=== PATIENT | female | born 1950 | race Caucasian/White ===

== ENCOUNTER 2022-01-27 07:57 | Day surgery (SDC) | payer MEDICARE, OTHER ==
[~2022-01-27] VITALS: Ht 160 cm; Wt 77.0 kg
[~2022-01-27 07:57] MED LIST: ACETAMINOPHEN500 M1 PO; ADVIL200 M1 PO; ESTRADIOL0.5 MG PO; MELOXICAM15 MG PO; PAROXETINE HCL30 MG PO; PRESERVISION A1 EACH PO; ROSUVASTATIN CA10 MG PO; SYSTANE BALANCE10 ML OU; TRAZODONE 100M100 MG PO; TURMERIC500 M2 PO; VITAMIN D325 MC2 PO
--- NOTE | 2022-01-27 14:24 | NUR ---
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 CHOICE LETTER SIGNED
--- NOTE | 2022-01-27 14:37 | NUR ---
[facility] WILL ACCEPT PLEASE CALL [phone] AT D/C
[2022-01-28 07:36] LABS: BASOPHIL 0.1 % (0-2); EOSINOPHIL 0.1 % (0-7); HCT 34.2 % (37.0-47.0); HGB 11.2 g/dl (12.5-16.0); LYMPHOCYTE 12.4 % (15-48); MCH 32.1 pg (25.0-31.0); MCHC 32.7 g/dL (32.0-36.0); MONOCYTE 10.9 % (0-12); MPV 10.1 fL (6.0-9.5); NEUTROPHIL 76.1 % (41-80); NRBC 0; PLT 195 K/uL (150-400); RBC 3.49 M/uL (4.20-5.40); WBC 12.8 K/uL (4.0-10.5)
[2022-01-28 07:57] LABS: CREATININE 0.8 mg/dL (0.51-0.95); POTASSIUM 4.2 mmol/L (3.5-5.1)
[2022-01-28] MEDS ORDERED: XARELTO10 MG PO (08:55)
[2022-01-28] MEDS ORDERED: OXYCODONE-ACET1 EAC1 PO (08:55)
[2022-01-28] MEDS ORDERED: FEOSOL325 MG PO (08:55)
== END 2022-01-28 11:28 | disposition home or self-care (01) ==
LOC: FAS 07:57 → FMS 07:57 → FAS 10:00 → FMS 12:43 → FAS 01-28 11:28
PROVIDERS: Legal Medicine
DX: M17.11 Unilateral primary osteoarthritis, right knee (principal); M21.161 Varus deformity, not elsewhere classified, right knee; M25.761 Osteophyte, right knee; M67.261 Synovial hypertrophy, not elsewhere classified, right lower leg; E78.5 Hyperlipidemia, unspecified; F32.A Depression, unspecified
CPT/HCPCS: 36415; 73560; 80048; 85025; 86850; 86900; 86901; 94010; 94762; 97110; 97162; 97165; 97530-GP; C1713; C1776; J0171; J0697; J1100; J1170; J1885; J2250; J2270; J2405; J2704; J2795; J3010; J7120